=== PATIENT | male | born 1965 | race African-American/Black ===

== ENCOUNTER 2016-09-26 09:48 | Emergency (ER) | payer OTHER, MEDICARE ==
[~2016-09-26] VITALS: Ht 188 cm; Wt 114.0 kg
[2016-09-26 09:55] VITALS: BP 130/81; PULSE 79; RESP 16; TEMP 98.8; O2SAT 96
--- NOTE | 2016-09-26 10:19 | PD ---
HPI Chief Complaint: Cold / Flu Symptoms Time Seen by Provider: 10:01 Travel History International Travel<30 days: No Contact w/Intl Traveler<30days: No Traveled to known affect area: No History of Present Illness HPI This 51-year-old male presents with complaint of being sick since last Monday. He had symptoms of a head cold. Sinus drainage and congestion. He was coughing. He felt like this was improving. This morning he had diarrhea between the hours of 5:30 and 9:30 he had repeated bouts. There is no blood in stool. He had no nausea or vomiting. He is not having abdominal pain. He does not feel any cramping at this time. He is generally healthy on no medications. PFSH Past Medical History Arthritis: Yes High Cholesterol: Yes Sleep Apnea: Yes Past Surgical History Abdominal Surgery: Yes (HERNIA REPAIR CHILD) Other Surgery: Yes (PLATE ON RIGHT SKULL AFTER HEAD INJURY A KID) Social History Alcohol Use: No Tobacco Use: No Substance Use: No Allergies-Medications (Allergen,Severity, Reaction): Coded Allergies: No Known Allergies (Unverified , 09/26/16) Reported Meds & Prescriptions Reported Meds & Active Scripts Active No Active Prescriptions or Reported Medications Review of Systems General / Constitutional: No: Fever, Chills Eyes: No: Diploplia HENT: Positive: Sore Throat, Rhinitis Cardiovascular: No: Chest Pain or Discomfort, Palpitations Respiratory: Positive: Cough Gastrointestinal: Positive: Diarrhea, No: Vomiting Musculoskeletal: No: Myalgias Physical Exam Narrative GENERAL: Well-developed male SKIN: Warm and dry. HEAD: Atraumatic. Normocephalic. EYES: Pupils equal and round. No scleral icterus. No injection or drainage. ENT: No nasal bleeding or discharge. Mucous membranes pink and moist. NECK: Trachea midline. No JVD. CARDIOVASCULAR: Regular rate and rhythm. No murmur appreciated. RESPIRATORY: No accessory muscle use. Clear to auscultation. Breath sounds equal bilaterally. GASTROINTESTINAL: Abdomen soft, non-tender, nondistended. Hepatic and splenic margins not palpable. MUSCULOSKELETAL: No obvious deformities. No clubbing. No cyanosis. No edema. NEUROLOGICAL: Awake and alert. No obvious cranial nerve deficits. Motor grossly within normal limits. Normal speech. PSYCHIATRIC: Appropriate mood and affect; insight and judgment normal. Data Data Last Documented VS Vital Signs Date Time Temp Pulse Resp B/P Pulse Ox O2 Delivery O2 Flow Rate FiO2 09/26/16 09:55 98.8 79 16 130/81 96 MDM Medical Decision Making Medical Screen Exam Complete: Yes Emergency Medical Condition: Yes Medical Record Reviewed: Yes Differential Diagnosis Differential includes viral illness, enteritis, URI Narrative Course Patient appears well. His symptoms of respiratory infection are improving. His diarrhea also seems to be resolving spontaneously. I don't think any diagnostic testing her medications are warranted at this time. This appears to be a viral illness. He will be released Diagnosis Primary Impression: Viral illness Additional Instructions: Take Imodium for diarrhea, return as needed Scripts No Active Prescriptions or Reported Meds Disposition: 01 DISCHARGE HOME Condition: Stable Darryl Doty MD Sep 26, 2016 10:19
== END 2016-09-26 10:30 | disposition home or self-care (01) ==
LOC: PHED 09:48
DX: B34.9 Viral infection, unspecified (principal); E78.00 Pure hypercholesterolemia, unspecified; G47.30 Sleep apnea, unspecified; R05 Cough
CPT/HCPCS: 99283